=== PATIENT | male | born 1960 | race Two or more races ===

== ENCOUNTER 2018-06-03 07:11 | Day surgery (SDC) | payer OTHER ==
[2018-06-02 13:09] VITALS: BMI 36.9
[2018-06-03 07:34] LABS: BASO % 0.8 % (0-2.0); EOS % 5.1 % (0-4.5); HEMATOCRIT 44.6 % (35.4-49); HEMOGLOBIN 14.9 GM/dL (11.7-16.9); LYMPH % 28.5 % (8-40); MCH 28.3 pg (25.7-33.7); MCHC 33.3 g/dl (32.0-35.9); MEAN CELL VOLUME 85.1 fl (80-96); MEAN PLT VOLUME 7.8 fl (7.5-11.1); MONO % 7.4 % (3.8-10.2); NEUT % 58.2 % (42.8-82.8); PLATELET COUNT 237 K/MM3 (134-434); RBC 5.25 M/mm3 (4.00-5.60); RDW 14.1 % (11.9-15.9)
[2018-06-03 07:47] LABS: INR 1.1 (0.83-1.09); PROTHROMBIN TIME (PATIENT) 12.4 SEC (9.7-13.0)
[2018-06-03 11:51] VITALS: TEMP 97
[2018-06-03 18:15] VITALS: BP 141/92; PULSE 80
--- NOTE | 2018-06-21 10:57 | PATH ---
Surgical Pathology Report Patient Name: BETINA KELLER [facility]. Rec. #: [id number] /Age/Gender: 1960 (Age: 58) / M Account: [id number] Location: RADIOLOGY INTER Taken: 06/03/2018 Received: 06/03/2018 Reported: 06/21/2018 Physicians: Harinder Gaston M.D. Specimen(s) Received RIGHT RENAL BIOPSY Clinical History Proteinuria and microscopic hematuria Final Diagnosis RENAL BIOPSY(LIMITED SAMPLE): 1. FOCAL GLOBAL GLOMERULOSCLEROSIS, MILD TO MODERATE, WITH GLOMERULOMEGALY (SEE COMMENT). 2. TUBULAR ATROPHY AND INTERSTITIAL FIBROSIS, MILD. 3. ARTERIOLAR HYALINOSIS, MODERATE TO SEVERE. 4. ARTERIOSCLEROSIS, MILD TO MODERATE. COMMENT: The overall evaluation is limited by scant cortical sampling for light microscopy and the lack of optimal tissue for immunofluorescence studies. That said, immunofluorescence (performed on pronase-digested tissue) provides evidence against glomerular disease of the immune complex type. The sampling for light microscopy reveals focal global glomerulosclerosis with glomerulomegaly. There is a background of mild tubular atrophy and interstitial fibrosis, moderate to severe arteriolar hyalinosis, and mild to moderate arteriosclerosis. The single glomerulus sampled for electron microscopy reveals thickened glomerular basement membranes. The glomerular features are most likely related to the combined effects of obesity and hypertension. Diabetes may also be a contributing factor. Of note, the biopsy does not provide a definitive explanation for the patient's hematuria. Therefore, non-glomerular causes of hematuria should be considered. Immunofluorescence (Procedure): Interpretation: GLOMERULI TUBULES INTERSTITIUM VESSELS IgG 4 gloms +/- neg neg neg Linear GCW (+1 sclerotic) IgM 4 gloms +/- casts +1 neg vessel wall gran seg mes intima +/- IgA 4 gloms neg casts 2+ neg neg C3 4 gloms +/- neg neg vessel wall gran seg mes intima 1+ C1 4 gloms +/- neg neg vessel wall gran seg mes intima +/- FBGN 4 gloms neg neg neg neg ALB 4 gloms +/- droplets +1 neg neg linear GCW KAPPA 4 gloms neg droplets 1+ neg neg casts 1+ LAMBDA 4 gloms neg droplets +/- neg neg casts 1+ Positive and negative controls show appropriate reactivity. Electron Microscopy (Procedure) Interpretation 1 Block, 2 Glomeruli (1 globally sclerotic) in Block A, Jeol 1010 Electron Microscope The mesangial areas appear expanded by a mild increase in mesangial matrix. The glomerular capillary lumina appear patent. Rare ill-defined electron densities are appreciated within the mesangium. That said, no definitive immune type electron dense deposits are appreciated. The glomerular basement membranes appear moderately thickened. The glomerular basement membranes are focally wrinkled. The visceral epithelial cells demonstrate approximately 50-60% foot process effacement. Scattered clear vesicles are appreciated within the podocyte cytoplasm. Interstitial collagen is seen. The tubular epithelial cells show scattered intracytoplasmic protein resorption droplets and vaculoizations. Case sent for consultation to Dr. Alexys Muhammad from [place], [place] ([id number]), the diagnosis above reflects his opinion. See complete report ([id number]) from [place], [place] for additional details. Electronically Signed Bianca Romero M.D. Gross Description Received fresh labeled "renal biopsy", is a portion of renal tissue measuring 1 cm in length and less than 0.1cm in diameter. The specimen is grossly evaluated as "glomeruli present". The specimen is divided into 3 portions and submitted in 10% formalin, tissue fixation for immunofluorescence, glutaraldehyde, respectively, and sent for consultation. GAURI06/03/2018 theresa06/03/2018
== END 2018-06-03 15:10 | disposition home or self-care (01) ==
LOC: JRADIR 07:11
PROVIDERS: ATTEND Internal Medicine
PROC: 0TB03ZX Excision of Right Kidney, Percutaneous Approach, Diagnostic (ICD-10-PCS; principal; 2018-06-03)
DX: R31.0 Gross hematuria (principal)
CPT/HCPCS: 36415; 50200; 85025; 85610; 88300-TC

== ENCOUNTER 2023-12-07 15:34 | Observation (INO) | payer OTHER ==
[2023-12-07 17:36] LABS: BASO % 0.3 % (0-2.0); EOS % 0.6 % (0-4.5); HEMATOCRIT 40.1 % (35.4-49); HEMOGLOBIN 13.6 GM/dL (11.7-16.9); LYMPH % 10.3 % (8-40); MCH 28.1 pg (25.7-33.7); MEAN CELL VOLUME 82.4 fl (80-96); MEAN PLT VOLUME 7.9 fl (7.5-11.1); MONO % 6.3 % (3.8-10.2); NEUT % 82.5 % (42.8-82.8); PLATELET COUNT 304 10^3/uL (134-434); RBC 4.86 M/mm3 (4.00-5.60); WHITE BLOOD COUNT 12.6 K/mm3 (4.0-10.0)
[2023-12-07 17:43] LABS: INR 1.12 (0.83-1.09)
[2023-12-07 17:46] LABS: ACTIVATED PTT 29.3 SECONDS (25.2-36.5)
[2023-12-07 18:12] LABS: POTASSIUM 3.8 mmol/L (3.5-5.1)
[2023-12-07 18:13] LABS: ALBUMIN 3.7 g/dl (3.4-5.0); BLOOD UREA NITROGEN 25.8 mg/dL (7-18)
[2023-12-07 18:17] LABS: CREATININE 1.3 mg/dL (0.55-1.3)
[2023-12-07 18:19] LABS: BILIRUBIN,TOTAL 0.4 mg/dL (0.2-1); TOT PROT 6.7 g/dl (6.4-8.2)
[2023-12-07] MEDS ORDERED: ACETAMINOPHEN INJECTION 100 ML IVPB ONE (18:25)
[2023-12-07] MEDS: morphine CARPU-JECT 4 MG/1 ML DISP.SYRIN IVPUSH ONE (18:27)
[2023-12-07] MEDS: ACETAMINOPHEN 1000 MG/100 ML BAG IVPB ONE (18:29)
[2023-12-07] MEDS ORDERED: ceFAZolin SODIUM 1 GM VIAL ONE (18:58)
[2023-12-07] MEDS: CEFAZOLIN 1 GM in DEXTROSE 5%-WATER - 50 ML IVPB SCH (18:58)
[2023-12-07] MEDS ORDERED: DIPHTH,PERTUSS(ACELL),TET 0.5 ML DISP.SYRIN IM ONE (19:10)
[2023-12-07] MEDS: DIPHTH,PERTUSS(ACELL),TET 0.5 ML DISP.SYRIN IM ONE (19:10)
[2023-12-07] MEDS ORDERED: DOCUSATE SODIUM 100 MG CAPSULE (FP) PO PRN (22:58)
[2023-12-07] MEDS ORDERED: DEXTROSE 5%-WATER 100 ML IVPB ONE (23:35)
[2023-12-07] MEDS ORDERED: CEFAZOLIN SODIUM 2 GM VIAL ONE (23:36)
[2023-12-08] MEDS: SODIUM CHLORIDE 1,000 ML IV SCH
[2023-12-08] MEDS: CEFAZOLIN SODIUM 2 GM in DEXTROSE 5%-WATER 100 ML IVPB ONE
[2023-12-08] MEDS ORDERED: ACETAMINOPHEN 1000 MG/100 ML BAG IVPB PRN (00:01)
[2023-12-08] MEDS ORDERED: CEFAZOLIN SODIUM 2 GM in DEXTROSE 5%-WATER 100 ML IVPB SCH (02:00)
[2023-12-08 03:13] VITALS: BMI 35.0
[2023-12-08] MEDS: INSULIN ASPART SLIDING SCALE (NOVOLOG) 1 VIAL SQ SCH (06:38)
[2023-12-08 08:17] LABS: POTASSIUM 3.7 mmol/L (3.5-5.1)
[2023-12-08 08:18] LABS: CALCIUM 8.8 mg/dL (8.5-10.1)
[2023-12-08 08:19] LABS: BLOOD UREA NITROGEN 22.8 mg/dL (7-18); MAGNESIUM 1.7 mg/dL (1.8-2.4)
[2023-12-08 08:21] LABS: BASO % 0.4 % (0-2.0); HEMATOCRIT 39.3 % (35.4-49); HEMOGLOBIN 13.1 GM/dL (11.7-16.9); LYMPH % 13.6 % (8-40); MCHC 33.4 g/dl (32.0-35.9); MEAN CELL VOLUME 83.9 fl (80-96); MEAN PLT VOLUME 8.2 fl (7.5-11.1); MONO % 9.9 % (3.8-10.2); NEUT % 75.1 % (42.8-82.8); PLATELET COUNT 271 10^3/uL (134-434); RBC 4.68 M/mm3 (4.00-5.60); RDW 14.1 % (11.9-15.9); WHITE BLOOD COUNT 10.4 K/mm3 (4.0-10.0)
[2023-12-08 08:22] LABS: CREATININE 1.2 mg/dL (0.55-1.3)
[2023-12-08] MEDS ORDERED: PATIENT'S OWN MEDICATION (NON-FORMULARY) (Losartan Potassium [Losartan Potassium] 100 MG T PO SCH (10:00)
[2023-12-08] MEDS ORDERED: PATIENT'S OWN MEDICATION (NON-FORMULARY) (Omeprazole [Omeprazole] 20 MG Tablet.Dr) PO SCH (10:00)
[2023-12-08] MEDS: PANTOPRAZOLE 40 MG TABLET PO SCH (11:21)
[2023-12-08] MEDS: VALSARTAN 160 MG TABLET PO SCH (11:21)
[2023-12-08] MEDS: ASPIRIN 81 MG CHEWABLE TABLETS PO SCH (11:21)
[2023-12-08] MEDS: CEFAZOLIN SODIUM 2 GM in DEXTROSE 5%-WATER 100 ML IVPB SCH (11:22)
[2023-12-08 11:37] LABS: N-TERMINAL BNP 273.1 pg/ml (5-125)
[2023-12-08] MEDS: FENOFIBRIC ACID 135 MG CAP PO SCH (21:14)
[2023-12-09] MEDS ORDERED: ACETAMINOPHEN 325 MG TABLET (FP) PO PRN (00:01)
[2023-12-09 03:31] VITALS: TEMP 97.7
[2023-12-09 11:11] VITALS: BP 152/84; PULSE 87; RESP 18
== END 2023-12-09 13:40 | disposition home or self-care (01) ==
LOC: JER 15:34 → JERBED 21:40 → J4W 12-08 02:56
PROVIDERS: ADMIT Internal Medicine; ATTEND Family Medicine
PROC: 2W3GX1Z Immobilization of Right Thumb using Splint (ICD-10-PCS; principal; 2023-12-07)
PROC: 3E033NZ Introduction of Analgesics, Hypnotics, Sedatives into Peripheral Vein, Percutaneous Approach (ICD-10-PCS; 2023-12-07)
PROC: 3E03329 Introduction of Other Anti-infective into Peripheral Vein, Percutaneous Approach (ICD-10-PCS; 2023-12-07)
PROC: 3E0234Z Introduction of Serum, Toxoid and Vaccine into Muscle, Percutaneous Approach (ICD-10-PCS; 2023-12-07)
PROC: 3E033NZ Introduction of Analgesics, Hypnotics, Sedatives into Peripheral Vein, Percutaneous Approach (ICD-10-PCS; 2023-12-07)
PROC: 3E0337Z Introduction of Electrolytic and Water Balance Substance into Peripheral Vein, Percutaneous Approach (ICD-10-PCS; 2023-12-07)
DX: S92.404A Nondisplaced unspecified fracture of right great toe, initial encounter for closed fracture (principal); S92.214A Nondisplaced fracture of cuboid bone of right foot, initial encounter for closed fracture; R94.31 Abnormal electrocardiogram [ECG] [EKG]; S50.311A Abrasion of right elbow, initial encounter; S90.411A Abrasion, right great toe, initial encounter; Y04.2XXA Assault by strike against or bumped into by another person, initial encounter; Y93.89 Activity, other specified; Y92.89 Other specified places as the place of occurrence of the external cause; M79.671 Pain in right foot; R42 Dizziness and giddiness; E11.22 Type 2 diabetes mellitus with diabetic chronic kidney disease; I12.9 Hypertensive chronic kidney disease with stage 1 through stage 4 chronic kidney disease, or unspecified chronic kidney disease; N18.9 Chronic kidney disease, unspecified; G47.33 Obstructive sleep apnea (adult) (pediatric); E78.5 Hyperlipidemia, unspecified; Z90.49 Acquired absence of other specified parts of digestive tract; Z23 Encounter for immunization
CPT/HCPCS: 36415; 70450-TC; 71045-TC-FY; 72125-TC; 73030-TC-RT-FY; 73110-TC-RT-FY; 73130-TC-RT-FY; 73610-TC-RT-FY; 73630-TC-RT-FY; 73700-TC-RT; 80048; 80053; 80061; 82550; 82962; 83036; 83735; 83880; 84443; 84484; 85025; 85610; 85730; 86850; 86900; 86901; 90715; 93005; 93010; 93306-TC; 97116-GP; 97162-GP; 99285-25; G0378; J0131